=== PATIENT | female | born 1960 | race Caucasian/White ===

== ENCOUNTER 2017-12-02 12:25 | Outpatient (CLI) | payer BC | END 2017-12-02 12:26 | disposition home or self-care (01) | LOC: BICMAMMO 12:25 | PROVIDERS: ATTEND Obstetrics & Gynecology | DX: Z12.31 Encounter for screening mammogram for malignant neoplasm of breast (principal); R92.1 Mammographic calcification found on diagnostic imaging of breast; Z80.3 Family history of malignant neoplasm of breast | CPT/HCPCS: 77063; 77067 ==

== ENCOUNTER 2019-11-20 08:40 | Outpatient (CLI) | payer BC ==
--- NOTE | 2019-11-20 09:47 | CT ---
EXAM: CT ABDOMEN AND PELVIS HISTORY: Left lower quadrant pain. Diverticulitis. Liver disease. COMPARISON: 11/07/2015 Procedure: Multiple contiguous axial images were obtained and a CT of the abdomen and pelvis with IV contrast. C oronal reformats were performed. FINDINGS: Lower Chest: Right lower lobe scar Vessels: Normal caliber aorta Heart: Normal heart size. No pericardial effusion Abdomen: Portal vein:Patent Gallbladder: No calcified gallstones. Normal caliber wall. Liver: Hypoattenuation due to hepatic steatosis. Redemonstration of a 2 hemangiomas in the right hepa tic lobe Pancreas: within normal limits. Spleen: within normal limits. Adrenals: within normal limits. Kidneys: Symmetric enhancement. No obstructive uropathy. Peritoneum: No ascites or free air, no fluid collection. Bowel: No evidence of bowel obstruction. Ileocecal junction is unremarkable. Normal caliber appendix. Scattered fecal material in a nondistended, nondilated colon. There is short segment irregularity involving the sigmoid colon. Findings may represent decompressed bowel. However, scarring due to raul te bouts of diverticulitis cannot be entirely excluded. There are associated diverticula. Currently no active inflammation (axial image 56 and coronal image 84). Mesentery and Retroperitoneum: No enlarged mesenteric or retroperitoneal lymph nodes. Abdominal Wall: within normal limits. Pelvis: Reproductive Organs: Surgically absent uterus Pelvis: No mass, lymphadenopathy, free air or free fluid. Bladder: within normal limits. Bones: within normal limits. IMPRESSION: 1. No acute abnormality in the abdomen or pelvis 2. Short segment bowel narrowing of the sigmoid colon which may be due to inadequate distention. Turner ines, there is scarring due to remote bouts of diverticulitis cannot be excluded. Direct visualization with colonoscopy is recommended. 3. Redemonstration of 2 separate hemangiomas in the right hepatic lobe
[2019-11-20] MEDS ORDERED: Iopamidol 370 76% 100 ML VIAL ONE (12:45)
== END 2019-11-20 08:41 | disposition home or self-care (01) ==
LOC: CT 08:40
PROVIDERS: ATTEND Internal Medicine Gastroenterology
DX: R10.12 Left upper quadrant pain (principal); K76.9 Liver disease, unspecified; R19.4 Change in bowel habit; K63.89 Other specified diseases of intestine; D18.03 Hemangioma of intra-abdominal structures
CPT/HCPCS: 74177; Q9967

== ENCOUNTER 2020-11-27 08:14 | Outpatient (CLI) | payer BC | END 2020-11-27 08:15 | disposition home or self-care (01) | LOC: SCSRAD 08:14 | PROVIDERS: ATTEND Chiropractor | DX: M25.551 Pain in right hip (principal) ==

== ENCOUNTER 2021-03-03 09:21 | Outpatient (CLI) | payer BC | END 2021-03-03 09:22 | disposition home or self-care (01) | LOC: BICMAMMO 09:21 | PROVIDERS: ATTEND Internal Medicine | DX: Z13.820 Encounter for screening for osteoporosis (principal) | CPT/HCPCS: 77080 ==

== ENCOUNTER 2022-12-28 17:30 | Outpatient (CLI) | payer BC | END 2022-12-28 17:31 | disposition home or self-care (01) | LOC: SLEEPLAB 17:30 | PROVIDERS: ATTEND Internal Medicine | DX: G47.33 Obstructive sleep apnea (adult) (pediatric) (principal); R53.83 Other fatigue; F32.A Depression, unspecified; R06.83 Snoring; I10 Essential (primary) hypertension | CPT/HCPCS: 95800 ==

== ENCOUNTER 2023-04-01 10:04 | Outpatient (CLI) | payer BC | END 2023-04-01 10:05 | disposition home or self-care (01) | LOC: BICMAMMO 10:04 | PROVIDERS: ATTEND Internal Medicine | DX: Z12.31 Encounter for screening mammogram for malignant neoplasm of breast (principal); Z91.89 Other specified personal risk factors, not elsewhere classified | CPT/HCPCS: 77063; 77067 ==

== ENCOUNTER 2023-12-30 09:01 | Outpatient (CLI) | payer BC | END 2023-12-30 09:02 | disposition home or self-care (01) | LOC: NM 09:01 | PROVIDERS: ATTEND Internal Medicine | DX: R93.89 Abnormal findings on diagnostic imaging of other specified body structures (principal); G62.9 Polyneuropathy, unspecified; M47.817 Spondylosis without myelopathy or radiculopathy, lumbosacral region | CPT/HCPCS: 78306; 78803; A9503 ==